=== PATIENT | female | born 1965 | race Caucasian/White ===

== ENCOUNTER 2018-04-28 01:48 | Emergency (ER) | payer OTHER ==
[~2018-04-28] VITALS: Ht 177.8 cm; Wt 81.8 kg
[2018-04-28] MEDS ORDERED: PERCOCET 5/325M1 TAB PO ×2 (03:10→03:25)
[2018-04-28 03:38] VITALS: BP 148/72
== END 2018-04-28 03:35 | disposition home or self-care (01) | DRG 605 ==
LOC: ED 01:48
DX: S40.012A Contusion of left shoulder, initial encounter (principal); S80.812A Abrasion, left lower leg, initial encounter; F17.210 Nicotine dependence, cigarettes, uncomplicated; V58.5XXA Driver of pick-up truck or van injured in noncollision transport accident in traffic accident, initial encounter